=== PATIENT | female | born 1980 | race Two or more races ===

== ENCOUNTER 2022-03-15 11:04 | Outpatient (REF) | payer OTHER, SELFPAY ==
[2022-03-15 12:11] LABS: MANUAL DIFF FLAG NO
[2022-03-15 13:11] LABS: Basophils Percent Auto 0.5 % (0-2); Eosinophils Absolute Auto 0.2 X10*3/uL (0.0-0.4); Eosinophils Percent Auto 1.9 % (0-4); Hematocrit 42.8 % (37.0-47.0); Hemoglobin 13.7 g/dl (12.0-16.0); Imm Gran Abs Auto 0.02 X10*3/uL (0.00-0.03); Imm Gran Pct Auto 0.2 % (0.0-0.4); Lymphocytes Absolute Auto 2.4 X10*3/uL (1.2-4.9); Lymphocytes Percent Auto 27.7 % (20-40); Mean Corpuscular Volume 81.2 fL (80.0-98.0); Mean Platelet Volume 10.5 fL (9.4-12.3); Monocytes Absolute Auto 0.6 X10*3/uL (0.1-1.2); Monocytes Percent Auto 6.4 % (2-11); Neutrophils Absolute Auto 5.5 x10*3/uL (2.0-8.3); Neutrophils Percent Auto 63.3 % (45-73); Platelet Count 312 X10*3/uL (160-400); Red Blood Count 5.27 X10*6/uL (4.20-5.50); Red Cell Distribution Width 14.9 % (11.0-16.0); White Blood Count 8.6 X10*3/uL (4.8-10.8)
[2022-03-15 13:25] LABS: Estimated Average Glucose 108 mg/dL; Hemoglobin A1c % 5.4 %
[2022-03-15 13:43] LABS: Alanine Aminotransferase 10 U/L (0-31); Albumin Level 4.5 g/dL (3.5-5.0); Alkaline Phosphatase 84 U/L (39-117); Anion Gap 13 (12-20); Aspartate Amino Transferase 10 U/L (5-31); Bilirubin Total 0.5 mg/dL (0.0-1.0); Blood Urea Nitrogen 10 mg/dL (9-16); C Reactive Protein 0.36 mg/dL (< or = 0.50); Calcium 9.5 mg/dL (8.4-10.2); Carbon Dioxide 25 mmol/L (22-29); Chloride 105 mmol/L (96-108); Cholesterol 207 mg/dL; Estimated Glomerular Filt Rate > 60; Glucose Random 84 mg/dL (60-115); HDL Cholesterol 61 mg/dL; Iron 57 mcg/dL (30-160); LDL Cholesterol Calculated 128 mg/dl; Percent Iron Saturation 16 % (15-50); Potassium 4.2 mmol/L (3.3-5.1); Sodium 139 mmol/L (135-145); Total Iron Binding Capacity 365 mcg/dL (228-428); Total Protein 7.3 g/dL (6.5-8.0); Triglycerides 92 mg/dL; Unsaturated Iron Binding 308 ug/dL
[2022-03-15 13:58] LABS: Ferritin 25 ng/mL (10-250); Insulin 9 uU/mL (2-29); TSH reflex Free T4 0.39 uIU/mL (0.32-4.0); Vitamin D 25-OH Total 23.5 ng/mL (>30)
[2022-03-15 14:14] LABS: Folate 13.6 ng/mL (> or = 4.0); Vitamin B12 491 pg/mL (200-900)
[2022-03-16 15:10] LABS: H Pylori Breath Test Negative (Negative)
[2022-03-18 00:37] LABS: Calcium (PTHI) 9.7 mg/dL (8.6-10.2); PTHI 106 pg/mL (16-77)
[2022-03-19 09:07] LABS: Vitamin B1 11 nmol/L (8-30)
[2022-03-20 06:11] LABS: Zinc 86 mcg/dL (60-130)
[2022-03-21 17:33] LABS: Vitamin A 41 mcg/dL (38-98)
== END 2022-03-15 11:05 | disposition home or self-care (01) ==
LOC: HO.LAB 11:04
PROVIDERS: Absent Provider Surgery; PCP Physician Assistant; Visit Provider Physician Assistant Surgical
DX: E66.9 Obesity, unspecified (principal); Z68.35 Body mass index [BMI] 35.0-35.9, adult; J44.9 Chronic obstructive pulmonary disease, unspecified; G47.30 Sleep apnea, unspecified
CPT/HCPCS: 36415; 80053; 80061; 82306; 82607; 82728; 82746; 83013; 83036; 83525; 83540; 83970; 84425; 84443; 84590; 84630; 85025; 86140; 99211

== ENCOUNTER 2022-06-13 12:46 | Outpatient (REF) | payer OTHER, SELFPAY ==
--- NOTE | ~2022-06-13 | XR_ITS ---
EXAMINATION: CHEST AND RIGHT ELBOW CLINICAL INFORMATION: Deep venous thrombosis in the right approximately COMPARISON: None TECHNIQUE: 3 views right elbow and 2 views chest FINDINGS: RIGHT ELBOW: There is no visible acute fracture, dislocation or subluxation. No bony erosive changes. The soft tissues are normal. CHEST: Both lungs are fairly well-expanded and clear. The heart size and pulmonary vascularity is normal. No gross bony abnormality. XR/XR chest 2V IMPRESSION: Unremarkable chest exam. Unremarkable right elbow exam
--- NOTE | ~2022-06-13 | XR_ITS ---
EXAMINATION: CHEST AND RIGHT ELBOW CLINICAL INFORMATION: Deep venous thrombosis in the right approximately COMPARISON: None TECHNIQUE: 3 views right elbow and 2 views chest FINDINGS: RIGHT ELBOW: There is no visible acute fracture, dislocation or subluxation. No bony erosive changes. The soft tissues are normal. CHEST: Both lungs are fairly well-expanded and clear. The heart size and pulmonary vascularity is normal. No gross bony abnormality. XR/XR elbow RT min 3V IMPRESSION: Unremarkable chest exam. Unremarkable right elbow exam
--- NOTE | 2022-06-13 12:53 | ECG_ITS ---
Test Reason : copd Blood Pressure : / mmHG Vent. Rate : 068 BPM Atrial Rate : 068 BPM P-R Int : 144 ms QRS Dur : 092 ms QT Int : 390 ms P-R-T Axes : 060 062 062 degrees QTc Int : 414 ms Normal sinus rhythm Normal ECG When compared with ECG of 08-MAR-2020 20:09, No significant change was found Referred By: Osvaldo Rivera Electronically Signed By:TERRIE YEPEZ
== END 2022-06-13 12:47 | disposition home or self-care (01) ==
LOC: HO.XRAY 12:46
PROVIDERS: Absent Provider Physician Assistant; PCP Physician Assistant; Visit Provider Surgery
DX: I82.621 Acute embolism and thrombosis of deep veins of right upper extremity (principal); E66.9 Obesity, unspecified; Z68.35 Body mass index [BMI] 35.0-35.9, adult; J44.9 Chronic obstructive pulmonary disease, unspecified; G47.30 Sleep apnea, unspecified
CPT/HCPCS: 71046; 73080; 93005

== ENCOUNTER → 2022-08-13 08:42 | Outpatient (BNVA) | payer OTHER, SELFPAY | PROVIDERS: PCP Physician Assistant; Visit Provider Surgery | DX: Z13.89 Encounter for screening for other disorder (principal) ==

== ENCOUNTER → 2022-08-30 13:00 | Outpatient (BNVA) | payer OTHER, SELFPAY | PROVIDERS: PCP Physician Assistant; Visit Provider Counselor Mental Health ==

== ENCOUNTER → 2022-09-04 10:51 | Outpatient (BNVA) | payer OTHER, SELFPAY | PROVIDERS: PCP Physician Assistant; Visit Provider Dietitian, Registered | DX: E66.9 Obesity, unspecified (principal) | CPT/HCPCS: 97802 ==

== ENCOUNTER → 2022-09-10 08:07 | Outpatient (BNVA) | payer OTHER, SELFPAY | PROVIDERS: PCP Physician Assistant; Visit Provider Surgery ==

== ENCOUNTER → 2022-09-20 09:30 | Outpatient (BNVA) | payer OTHER, MEDICAID, SELFPAY | PROVIDERS: PCP Physician Assistant; Visit Provider Counselor Mental Health ==

== ENCOUNTER 2022-12-27 13:03 | Outpatient (AMB) | payer MEDICAID, SELFPAY ==
--- NOTE | 2022-12-27 13:13 | MHC.OFFVISWM ---
Intake VS Expanded 12/27/22 13:17 Height 5 ft 3 in Weight 194 lb 9.6 oz BMI 34.5 BP 131/69 Blood Pressure Location Rt brachial Blood Pressure Position Sitting Pulse 89 Pulse Source Pulse Oximeter Temp 97.7 F Temperature Source Temporal Artery Scan Pulse Oximetry 97 Oxygen Delivery Method Room Air Body Fat 68.8 Body Fat Percentage 35.4 Free Fat Mass 125.6 Muscle Mass 119.2 Visceral Mass 8.0 Water Mass 89.8 BMR 1,714 Intake Visit Reasons: (OV) F/U SWL Credit Card Analyst Required: No Allergies Penicillins [PENICILLINS] Allergy (Unknown, Verified 12/27/22 13:17) FACIAL SWELLING penicillin Allergy (Unknown, Uncoded 02/26/22 08:12) Swelling Medication List - Last Reconciled 12/27/22 by JOSELUIS Camilo albuterol sulfate 90 mcg/actuation (ProAir HFA) 2 puffs inhalation Q6H PRN beclomethasone dipropionate 80 mcg/actuation (Qvar RediHaler) 1 inh inhalation BID cetirizine (Zyrtec) 10 mg PO DAILY PRN cholecalciferol (vitamin D3) 125 mcg PO DAILY fluvoxamine 100 mg PO BID lamotrigine 200 mg PO DAILY naltrexone microspheres ER (Vivitrol) 380 mg IM Q4W pregabalin 75 mg PO BID HPI HPI Comments History of Present Illness Details The patient is a pleasant 42 year old female who returns to the clinic for pre-operative surgical weight loss management. She started the program in February 2022. Today's weight is 194.6 pounds and BMI is 34.5. There has been a weight loss of 3.4 pounds since initiating the surgical weight loss program on 02/26/22 with a total body weight loss of 1.7 %. Pre op work up completed as follows: SWL classes:? 07/18 BH appts: needs f/u ? ? RD appts: needs f/u Labs: 03/15/22-low D H. pylori: 03/15/22-neg CXR: 06/13/22-nad EK06/13/22-nsr ABD U/S: needs UGI: needs The patient reports she is still smoking, down to 3 cigs per day, down from 1 ppd, wearing nicotine patch 21 mg. She is living at a transitional program in [place] (recovery program for alcohol abuse), returning to her home in [place] in 2 weeks. Previously, years ago, drinking 1.5 L per day but then changed to crack cocaine, stopped 3 years ago. Clean until September and then picked up alcohol. 2-3 pints ary daily until 12/01/22 when she quit and went into a detox program at that time. Went into the CSS/detox over 2 weeks and then into a TSS program about 8 days ago. She intends to start the IOP at [facility] upon return to the community in about 2 weeks. She states that the TSS inpt program can accommodate her Orgain shakes and ZP bars. Wakes 530am bed at 930 pm, dinner at 430 pm Current meal plan includes: oatmeal for breakfast, with eggs and coffee pork, veg, salad another meal Drinking 36-80 oz of water Current exercise plan includes: using tv in am [facility] [place] the pounds. [facility] Medical History Agoraphobia Anxiety Back pain Bipolar 1 disorder COPD (chronic obstructive pulmonary disease) Depression History of alcohol abuse Insomnia Social History Alcohol intake: never Patient Tobacco Use Status: Current everyday Tobacco user Cigarettes Per Day: 3 Years Smoked: 20 Physical Exam Vital Signs: Last Vital Signs Temp 97.7 F 12/27/22 13:17 Pulse 89 12/27/22 13:17 BP 131/69 12/27/22 13:17 Pulse Ox 97 12/27/22 13:17 Oxygen Delivery Method Room Air 12/27/22 13:17 BMI result Body Mass Index 34.5 Const General: healthy appearing and no acute distress Resp Effort & Inspection: normal respiratory effort Auscultation: clear to auscultation bilaterally Cardio Rate: regular rate Rhythm: regular rhythm GI Auscultation: normal bowel sounds Extrem General: Yes normal to inspection Assessment & Plan Assessment & Plan (1) Obesity: Code(s): E66.9 - Obesity, unspecified Plan: 630-830 am shake Orgain 1 scoop in 8 oz unsweetened almond milk [id number] 1-3 pm-ZP bar 430 pm meal 8 forks protein/8 forks veg 630-830 pm-kathleenke RD/BH appts rtc 1 month Coding Level of Care Code Est Pt Level 3 (73288) Diagnoses Obesity E66.9
[2022-12-27 13:17] VITALS: BP 131/69; PULSE 89; TEMP 36.5; O2SAT 97; BMI 34.5
== END 2022-12-27 13:56 | disposition home or self-care (01) ==
PROVIDERS: PCP Physician Assistant; Visit Provider Physician Assistant Surgical
DX: E66.9 Obesity, unspecified (principal)
CPT/HCPCS: 99213

== ENCOUNTER → 2022-12-27 13:03 | Outpatient (BNVA) | payer MEDICAID, SELFPAY | PROVIDERS: PCP Physician Assistant; Visit Provider Physician Assistant Surgical | DX: E66.9 Obesity, unspecified (principal); Z68.34 Body mass index [BMI] 34.0-34.9, adult | CPT/HCPCS: 99212; 99213 ==

== ENCOUNTER → 2023-01-01 11:12 | Outpatient (BNVA) | payer MEDICAID, SELFPAY | PROVIDERS: PCP Physician Assistant; Visit Provider Dietitian, Registered | DX: F10.20 Alcohol dependence, uncomplicated (principal); F17.210 Nicotine dependence, cigarettes, uncomplicated | CPT/HCPCS: 97803 ==

== ENCOUNTER 2023-01-03 11:36 | Outpatient (AMB) | payer MEDICAID, SELFPAY ==
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
== END 2023-01-03 11:53 | disposition home or self-care (01) ==
LOC: HO.HBST 11:36
PROVIDERS: PCP Physician Assistant; Visit Provider Counselor Mental Health
DX: F31.9 Bipolar disorder, unspecified (principal); F10.11 Alcohol abuse, in remission; F50.81 Binge eating disorder
CPT/HCPCS: 90834

== ENCOUNTER → 2023-01-03 11:36 | Outpatient (BNVA) | payer OTHER, MEDICAID, SELFPAY | PROVIDERS: PCP Physician Assistant; Visit Provider Counselor Mental Health ==

== ENCOUNTER 2023-01-29 09:31 | Outpatient (AMB) | payer MEDICAID, SELFPAY ==
--- NOTE | 2023-01-29 09:35 | A.OFFVIS_ITS ---
Intake VS Expanded 01/29/23 09:39 Height 5 ft 3 in Weight 201 lb 3.2 oz BMI 35.6 BP 110/54 L Blood Pressure Location Rt brachial Blood Pressure Position Sitting Pulse 76 Pulse Source Pulse Oximeter Temp 98.3 F Temperature Source Temporal Artery Scan Pulse Oximetry 97 Oxygen Delivery Method Room Air Body Fat 76.2 Body Fat Percentage 37.9 Free Fat Mass 124.8 Muscle Mass 118.4 Visceral Mass 9.0 Water Mass 89.0 BMR 1,714 Intake Visit Reasons: (OV) F/U SWL Fermenting Cellars Supervisor Required: No Allergies Penicillins [PENICILLINS] Allergy (Unknown, Verified 01/29/23 09:37) FACIAL SWELLING penicillin Allergy (Unknown, Uncoded 02/26/22 08:12) Swelling Medication List - Last Reconciled 01/29/23 by JOSELUIS Camilo albuterol sulfate 90 mcg/actuation (ProAir HFA) 2 puffs inhalation Q6H PRN beclomethasone dipropionate 80 mcg/actuation (Qvar RediHaler) 1 inh inhalation BID cetirizine (Zyrtec) 10 mg PO DAILY PRN cholecalciferol (vitamin D3) 125 mcg PO DAILY fluvoxamine 100 mg PO BID lamotrigine 200 mg PO DAILY naltrexone microspheres ER (Vivitrol) 380 mg IM Q4W pregabalin 75 mg PO BID HPI HPI Comments History of Present Illness Details The patient is a pleasant 43 year old female who returns to the clinic for pre-operative surgical weight loss management. They were last seen in the office on 12/27/22, recorded weight at that time was 194.6 pounds, with a BMI of 34.5. Today's weight is 201.2 pounds and BMI is 35.6. There has been a weight gain of 3.2 pounds since initiating the surgical weight loss program on 02/26/22. The patient reports she is in a full program for ETOH addiction. She had med changes and she was in bed for 2 weeks. She just started exercising again. Continues 3 cigs per day. Current meal plan includes: 630-830 am shake Orgain 1 scoop in 8 oz unsweetened almond milk [id number] 1-3 pm-ZP bar 430 pm meal 8 forks protein/8 forks veg 630-830 pm-shake Drinking 120 oz of water Current exercise plan includes: mallorie tran walk away the pounds, 1 - 2 miles daily. PFSH Medical History Agoraphobia Anxiety Back pain Bipolar 1 disorder COPD (chronic obstructive pulmonary disease) Depression History of alcohol abuse Insomnia Social History Alcohol intake: never Patient Tobacco Use Status: Current everyday Tobacco user Cigarettes Per Day: 3 Years Smoked: 20 Review of Systems Const All systems reviewed & are unremarkable except as noted in HPI and below Physical Exam Vital Signs: Last Vital Signs Temp 98.3 F 01/29/23 09:39 Pulse 76 01/29/23 09:39 BP 110/54 L 01/29/23 09:39 Pulse Ox 97 01/29/23 09:39 Oxygen Delivery Method Room Air 01/29/23 09:39 BMI result Body Mass Index 35.6 Const General: healthy appearing and no acute distress Resp Effort & Inspection: normal respiratory effort Auscultation: clear to auscultation bilaterally Cardio Rate: regular rate Rhythm: regular rhythm GI Auscultation: normal bowel sounds Extrem General: Yes normal to inspection Assessment & Plan Assessment & Plan (1) Obesity: Code(s): E66.9 - Obesity, unspecified Plan: Given pts ongoing IOP for ETOH abuse and just recent sobriety (2 months) will w/d from the program and return after a year of sobriety. Coding Level of Care Code Est Pt Level 3 (57999) Diagnoses Obesity E66.9
[2023-01-29 09:39] VITALS: BP 110/54; PULSE 76; TEMP 36.8; O2SAT 97; BMI 35.6
== END 2023-01-29 10:08 | disposition home or self-care (01) ==
PROVIDERS: PCP Physician Assistant; Visit Provider Physician Assistant Surgical
DX: E66.9 Obesity, unspecified (principal)
CPT/HCPCS: 99213

== ENCOUNTER → 2023-01-29 09:31 | Outpatient (BNVA) | payer MEDICAID, SELFPAY | PROVIDERS: PCP Physician Assistant; Visit Provider Physician Assistant Surgical | DX: E66.9 Obesity, unspecified (principal); Z68.35 Body mass index [BMI] 35.0-35.9, adult | CPT/HCPCS: 99212; 99213 ==

== ENCOUNTER 2023-06-21 10:36 | Outpatient (REF) | payer MEDICAID, SELFPAY ==
--- NOTE | ~2023-06-21 | XR_ITS ---
EXAMINATION: XR SHOULDER, RIGHT CLINICAL INFORMATION: Pain COMPARISON: None available. TECHNIQUE: AP external rotation, Grashey, scapular Y, and axillary views of the right shoulder. FINDINGS: The bones and soft tissues are normal. No fracture. Glenohumeral and acromioclavicular alignment is anatomic with normal joint space. No abnormal soft tissue calcifications. XR/XR shoulder RT min 2V IMPRESSION: Unremarkable right shoulder.
== END 2023-06-21 10:37 | disposition home or self-care (01) ==
LOC: HO.XRAY 10:36
PROVIDERS: PCP Physician Assistant; Visit Provider Physician Assistant
DX: M25.511 Pain in right shoulder (principal)
CPT/HCPCS: 73030

== ENCOUNTER 2023-06-24 11:05 | Outpatient (REF) | payer MEDICAID, SELFPAY ==
[2023-06-24 11:26] LABS: MANUAL DIFF FLAG NO
[2023-06-24 12:04] LABS: Basophils Absolute Auto 0.1 X10*3/uL (0.0-0.2); Basophils Percent Auto 0.7 % (0-2); Eosinophils Absolute Auto 0.1 X10*3/uL (0.0-0.4); Eosinophils Percent Auto 1.4 % (0-4); Hematocrit 41.2 % (37.0-47.0); Hemoglobin 13.2 g/dl (12.0-16.0); Imm Gran Abs Auto 0.03 X10*3/uL (0.00-0.03); Imm Gran Pct Auto 0.4 % (0.0-0.4); Lymphocytes Absolute Auto 1.9 X10*3/uL (1.2-4.9); Lymphocytes Percent Auto 26.4 % (20-40); Mean Corpuscular Hemoglobin 25.6 pg (27.0-33.0); Mean Platelet Volume 9.7 fL (9.4-12.3); Monocytes Absolute Auto 0.4 X10*3/uL (0.1-1.2); Monocytes Percent Auto 4.9 % (2-11); Neutrophils Absolute Auto 4.9 x10*3/uL (2.0-8.3); Neutrophils Percent Auto 66.2 % (45-73); Platelet Count 309 X10*3/uL (160-400); Red Blood Count 5.15 X10*6/uL (4.20-5.50); Red Cell Distribution Width 17.5 % (11.0-16.0); White Blood Count 7.3 X10*3/uL (4.8-10.8)
[2023-06-24 12:11] LABS: Alanine Aminotransferase 18 U/L (0-31); Albumin Level 4.5 g/dL (3.5-5.0); Alkaline Phosphatase 94 U/L (39-117); Anion Gap 11 (12-20); Aspartate Amino Transferase 12 U/L (5-31); Bilirubin Total 0.3 mg/dL (0.0-1.0); Blood Urea Nitrogen 11 mg/dL (9-16); Calcium 9.5 mg/dL (8.4-10.2); Carbon Dioxide 22 mmol/L (22-29); Chloride 109 mmol/L (96-108); Estimated Glomerular Filt Rate > 60; Glucose Random 87 mg/dL (60-115); Potassium 4.4 mmol/L (3.3-5.1); Sodium 138 mmol/L (135-145); Total Protein 7.8 g/dL (6.5-8.0)
[2023-06-24 12:19] LABS: HBS Num1 2.83 mIU/mL (0-7.99); HBc Num1 0.09 S/CO (0.00-0.79); HBsAGNum1 0.25 S/CO (0.00-0.99); HIV AB/AG Nonreactive (Nonreactive); HIV Num 1 0.04 S/CO (0.00-0.99); Hepatitis B Core Antibody Nonreactive (Nonreactive); Hepatitis B Surface Antigen Negative (Negative); Syphilis Screen Nonreactive (Nonreactive); ~HepC Num1 0.13 S/CO (0.00-0.79); ~Hepatitis B Surface Antibody NONREACTIVE (Nonreactive); ~Hepatitis C Antibody Nonreactive (Nonreactive)
[2023-06-24 12:20] LABS: Free T4 (Free Thyroxine) 0.87 ng/dL (0.71-1.85); Thyroid Stimulating Hormone 0.52 uIU/mL (0.32-4.0)
[2023-06-24 12:26] LABS: Vitamin B12 443 pg/mL (200-900)
[2023-06-24 13:28] LABS: UPreg QC Valid YES; Urine Pregnancy NEGATIVE (NEGATIVE)
== END 2023-06-24 11:06 | disposition home or self-care (01) ==
LOC: HO.LAB 11:05
PROVIDERS: Visit Provider Psychiatry & Neurology Psychiatry
DX: Z11.4 Encounter for screening for human immunodeficiency virus [HIV] (principal); F31.81 Bipolar II disorder
CPT/HCPCS: 36415; 80053; 81025; 82607; 84439; 84443; 85025; 86704; 86706; 86780; 86803; 87340; 87389

== ENCOUNTER → 2023-06-26 09:45 | Outpatient (BNV) | payer OTHER, SELFPAY | PROVIDERS: Visit Provider Psychiatry & Neurology Psychiatry | DX: F31.81 Bipolar II disorder (principal); F41.8 Other specified anxiety disorders; F42.9 Obsessive-compulsive disorder, unspecified; F63.89 Other impulse disorders; F43.12 Post-traumatic stress disorder, chronic; F14.21 Cocaine dependence, in remission; F10.21 Alcohol dependence, in remission | CPT/HCPCS: 99213; 99214 ==

== ENCOUNTER 2023-06-28 09:45 | Outpatient (RCR) | payer OTHER, SELFPAY ==
[2023-06-13 11:47] VITALS: BP 114/64; PULSE 64; TEMP 36.4
[2023-06-13 11:51] VITALS: BMI 31.9
--- NOTE | 2023-06-13 13:57 | PC.ADMIT ---
Patient is a 43 year old female who self referred to PHP d/t mood instability, anxiety, PTSD sxs and recent relapse on ETOh and Cocaine. Patient reports she has been sober for 3 weeks and 2 days. She is on MAT with Vivitrol monthly injections and Topomax daily. Patient has a DX of Bipolar II disorder. Patient is alert and oriented x4. Calm and cooperative. Increased anxiety with visible restlessness while sitting in a chair while meeting with me in my office. Reports her biggest struggle is anxiety. She also reports difficulty leaving her home. Denied SI. Medications reconciled with patient and patient's pharmacy. She reports she recently switched [facility] on [facility] [address] in [place].
--- NOTE | 2023-06-13 14:30 | HO.PHP ---
Client's case has been opened and reviewed in treatment team.
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
--- NOTE | 2023-06-14 09:41 | PC.NURSE ---
Liz has an appointment today with . She will be at the program on Saturday.
--- NOTE | 2023-06-17 09:32 | PC.NURSE ---
Liz did not show up to the program this morning. I called Liz and left her a message to call me back.
--- NOTE | 2023-06-17 09:48 | PC.NURSE ---
I called Liz for the second time. I spoke to her and she stated she forgot to call us and let us know she has orientation today with [employer] for unemployment. She stated she will be at [facility] program for the rest of the week.
--- NOTE | 2023-06-19 10:12 | PC.NURSE ---
Patient c/o R shoulder pain. She reported upon admission to [facility] that her doctor has ordered an x-ray to be done and that she was planning on completing this after program that day. Patient continues to c/o shoulder pain. She has not completed the x-ray, unclear why. She stated she has been on the phone with her doctor's office and is having them transfer the x-ray orders to [facility] so she can complete the x-ray here. Does not want to go to the emergency room to f/u.
[2023-06-21 14:44] LABS: Amphetamine Screen Urine Not Detected (Not Detect); Barbiturates, Urine Not Detected (Not Detect); Benzodiazepines Screen Urine Not Detected (Not Detect); Cannabinoid Screen Urine Not Detected (Not Detect); Cocaine Screen Urine Not Detected (Not Detect); Fentanyl, urine Not Detected (Not Detect); Opiate Screen Urine Not Detected (Not Detect); Phencyclidine Screen Urine Not Detected (Not Detect)
--- NOTE | 2023-06-21 23:42 | HO.PHPPROGNO ---
Subjective Subjective Date of Service: 06/21/23 Reason For Visit: bipolar,PTSD Interim History: Patient seen for follow-up today. No acute issues or concerns. Still reporting mood up and down, describes high reactivity, irritability more than depression. Anxiety remains biggest issue . Presents with bright somewhat anxious affect, smiling, engaging, remains very restless and fidgety throughout encounter, has difficulty sitting still and says this is a constant issue for her on account of reported ADHD. Hyperactivity but otherwise negative for osvaldo. Reports constant fidgeting and has been told by peers in groups that she is being distracting. Would like to be treated for ADHD and is agreeable to trial of guanfacine which would also help with anxiety. Sleep has been intact but some difficulties settling for sleep. This has improved with Ambien and topiramate. She is still experiencing some cravings later in the afternoon and is agreeable to taking 25 mg topiramate in AM and continuing 25 mg HS. Lamictal is at 100 mg (since increasing from 50 mg last week - she denies any rash, and says she has restarted herself on Lamictal before without problems, but agrees to comply with titration schedule and will remain at 100 mg for another week) . In the meantime we discuss starting Abilify to target mood instability. She has had brief trial of Seroquel for sleep but was too sedating and is worried about weight gain. May have been on Abilify in the past many years ago, does not recall treatment history, but is willing to give it a try. She denies any suicidal ideation or thoughts of harming self or others. Will plan to order routine labs including metabolic lab work as well as HIV, hepatitis status. Medication Compliance: Yes Side effects from medications: No Attending Groups: Yes Review of Systems Acute medical concerns: No Mental Status Exam Mental Status Exam Narrative: Alert, oriented, in no acute distress. Groomed. +psychomotor agitation, restlessness, fidgety, rocking in chair otherwise cooperative, forthcoming. Eye contact good. Mood labile, affect variable, elevated. Normal speech without pressure or latency. Thought process linear, coherent, a bit scattered without FOI or CHARY. Thought content relevant to stressors, poor impulse control, attentional dysregulation. Denies hopelessness or SI or HI, intention, urge or plan. Denies AH or VH. No evidence of perceptual disturbance. Cognition grossly intact but distractible. Sensorium clear. Insight and judgment limited/fair. Diagnostics Vital Signs (24Hr): BMI result Body Mass Index 31.9 Labs Labs: Laboratory Results - last 48 hr 06/21/23 14:00 Urine Opiates Screen Not Detected Urine Fentanyl Screen Not Detected Ur Barbiturates Screen Not Detected Ur Phencyclidine Scrn Not Detected Ur Amphetamines Screen Not Detected U Benzodiazepines Scrn Not Detected Urine Cocaine Screen Not Detected U Marijuana (THC) Screen Not Detected Assessment & Plan Assessment & Plan (1) Bipolar II disorder with rapid cycling: Status: Acute Code(s): F31.81 - Bipolar II disorder (2) Other specified anxiety disorders: Status: Acute Code(s): F41.8 - Other specified anxiety disorders (3) Cocaine use disorder, severe, in early remission, dependence: Status: Acute Code(s): F14.21 - Cocaine dependence, in remission (4) Alcohol use disorder, severe, in early remission, dependence: Status: Acute Code(s): F10.21 - Alcohol dependence, in remission (5) Other impulse disorders: Status: Acute Code(s): F63.89 - Other impulse disorders (6) Obsessive compulsive disorder (or obsessive compulsive neurosis): Status: Acute Code(s): F42.9 - Obsessive-compulsive disorder, unspecified Assessment and Plan: stable on Luvox (7) Chronic post-traumatic stress disorder (PTSD): Status: Acute Code(s): F43.12 - Post-traumatic stress disorder, chronic Plan start Abilify 2.5 mg qd start guanfacine Er 1 mg qd continue retitration of Lamictal, currently at 100 mg qd (previous dose was 200 mg) continue Luvox 50 mg BID continue Lyrica 150 mg BID increase topiramate 25 mg from qd to BID continue zolpidem 5 mg qhs PRN sleep on Vivitrol monthly injection UDS again today given slip for lab work continue to monitor Patient educated on: diagnosis, medication risk/benefits and substance abuse Informed Consent: understands Reason for contiued partial hosp. stay Substantial Risk for: inability to function, rapid decompensation and med/psych decompensation Certification I certify that partial hospital treatment is medically necessary due to the symptoms and problems resulting from the patient's mental illness and the failure to treat the patient at the partial hospital level of care would likely result in the patient requiring inpatient psychiatric care which could not be prevented at a less intensive level of care. Total time managing care of this patient today __30__ minutes. Discharge Plan Discharge Attending provider: Aydee Adams Medications: New topiramate 25 mg tablet 25 mg PO DAILY 14 Days Qty: 14 0RF topiramate 50 mg tablet 50 mg PO .QHS 14 Days Qty: 14 0RF guanfacine 2 mg tablet extended release 24 hr 2 mg PO QAM 14 Days Qty: 14 0RF guanfacine 1 mg tablet extended release 24 hr 1 mg PO DAILY 14 Days Qty: 14 0RF Rx Instructions: in afternoon metformin 500 mg tablet 500 mg PO .QHS 14 Days Qty: 14 0RF aripiprazole [Abilify] 5 mg tablet 5 mg PO BEDTIME 14 Days Qty: 14 0RF fluvoxamine 50 mg tablet 50 mg PO BID 14 Days Qty: 28 0RF lamotrigine 150 mg tablet 150 mg PO DAILY 14 Days Qty: 14 0RF nicotine 14 mg/24 hr patch 24 hour 1 patch transdermal DAILY 14 Days Qty: 14 0RF Rx Instructions: remove patch daily at night; use 14 mg patch Rx after completing 2 weeks of 21 mg patch Rx nicotine 7 mg/24 hr patch 24 hour 1 patch transdermal Q24H 14 Days Qty: 14 0RF Rx Instructions: remove daily at night; use 7 mg patch Rx after completing 2 weeks of 14 mg patch Rx Continued pregabalin 150 mg capsule 150 mg PO BID zolpidem 5 mg tablet 5 mg PO BEDTIME PRN (Reason: sleep) 14 Days Qty: 14 0RF nicotine 21 mg/24 hr Patch 24 Hour 1 patch TRANSDERMAL DAILY 14 Days Qty: 14 0RF Rx Instructions: remove patch daily at night nicotine (polacrilex) 4 mg Gum 4 mg BUCCAL Q2H Qty: 50 0RF Rx Instructions: Cinnamon option Vivitrol 380 mg suspension,extended rel recon 380 mg IM Q4W Patient Comments: Last took 2 weeks ago. albuterol sulfate [ProAir HFA] 90 mcg/actuation HFA aerosol inhaler 2 puff inhalation Q6H PRN (Reason: sob) Discontinued topiramate [Topamax] 25 mg Tablet 25 mg PO DAILY lamotrigine 200 mg tablet 100 mg PO DAILY Patient Comments: Patient was taking 200 mg daily. Currently is taking 100 mg daily. Rx Instructions: Takes 1/2 tab daily. fluvoxamine 100 mg tablet 50 mg PO BID Patient Comments: Patient stated she restarted. Prescription was for 100 mg tab take 1.5 tabs BID. She is taking 50 mg BID currently. No Action tramadol 50 mg Tablet 50 mg PO QID PRN (Reason: Pain) Stand Alone Forms: Patient Portal Discharge page Patient Education: Bipolar Disorder (DC), Post Traumatic Stress Disorder (DC)
--- NOTE | 2023-06-24 14:26 | HO.PHP ---
Monogram Operator met with pt at 9 am after [facility] to use the phone. Pt and automatic typewriter inspector discussed how her increased phone use was interfering with groups and her ability to participate last week. Pt agreed she had a lot of distractions and would try to use the phone between groups only. At 2:00 we met again to discuss an extension.
--- NOTE | 2023-06-25 13:10 | HO.PHP ---
[facility] staff member completed after care planning with Liz, in which we contacted [facility]. Liz has her next scheduled appointment on July 01, 2023 at 11 AM. Liz will begin program on July 02, 2023 at 9 to 12:30 PM. Location is in [place] [address].
[2023-06-27 09:29] VITALS: BP 104/62; PULSE 72
--- NOTE | 2023-06-27 18:23 | HO.PHPPROGNO ---
Subjective Subjective Date of Service: 06/27/23 Reason For Visit: bipolar,PTSD Interim History: Doing good, feel good In the interim, reports no outbursts, reports over stability at a 6 out of 10, improved from a 2 out of 10 on admission. She reports her mood is stable, not really having any problems with irritability or depression. What remains that needs improvement is mostly ADHD-related issues and anxiety symptoms. I have a lot of anxiety left but now I can cope with it and I'm functioning. She finds the guanfacine helps her feel calmer and less fidgety, and notes that being calmer she also has been better able to pay attention and focus on tasks or on conversations in groups.She says she has been able to follow other people's discussions without being as distracted. She also reports that she has been doing more writing in her free time and has been starting and completing tasks around her house. She would like to increase dose of guanfacine to see if it can help further with attention/focus/hyperactivity. She denies any adverse effects. Sleep has improved with additional of Abilify, she is generally out of bed by 5 am, takes first dose before 7am, feels effects wear-off by afternoon and feels more anxious and scattered by then. We discuss moving her PM dose of guanfacine to the afternoon which she is agreeable to. She has been taking topiramate 25 mg BID, she is noticing a little brain fog after the AM dose, which lasts an hour or 2, and I suggest she could take all 50 mg at night. She says she doesn't mind continuing the AM dose now that she knows what is causing this, and in fact feels like this has been improving with time, but she asks if she could still move to 50 mg at night. She denies having any cravings but says the topic of substance use has been popping up in her mind and says she just wants to make sure she doesn't start having cravings. She is agreeable to dropping the dose back to 25 mg QHS if it feels like too much. She denies any SI. No HI, AH, VH. But says she has some ED thoughts around restricting, she has not been engaging in this but that it is stemming from worries that the Abilify will put weight on her. She says she had been previously pre-diabetic and that she had been encouraged to make lifestyle changes which she has worked hard on. Nonetheless she puts weight on easily and says she is still very overweight. She was agreeable with plan to start metformin 250 mg bid, and says she would be much more comfortable with the Abilify and much less anxious about potential weight gain if this was in place. We reviewed patient's recent lab work from 06/24, no major findings on CBC, renal and liver function, metabolic labs, HbA1c, TFTs. Pregancy, HIV, hepatitis panels negative. Medication Compliance: Yes Side effects from medications: Yes (as noted re: AM topiramate) Attending Groups: Yes Review of Systems Acute medical concerns: No Mental Status Exam Mental Status Exam Narrative: Alert, oriented, in no acute distress. Groomed. +psychomotor agitation, restlessness, fidgety, rocking in chair (fell off chair at one point ?possibly overdramatized or attention-seeking) otherwise cooperative, forthcoming. Eye contact good. Mood labile, affect variable, elevated. Normal speech without pressure or latency. Thought process linear, coherent, a bit scattered without FOI or CHARY. Thought content relevant to stressors, poor impulse control, attentional dysregulation, some drug seeking around ADHD meds and benzos. Denies hopelessness or SI or HI, intention, urge or plan. Denies AH or VH. No evidence of perceptual disturbance. Cognition grossly intact but distractible. Sensorium clear. Insight and judgment limited/fair. Diagnostics Vital Signs (24Hr): Vital Signs - 24 hr 06/27/23 09:29 Pulse Rate 72 Blood Pressure 104/62 BMI result Body Mass Index 31.9 Assessment & Plan Assessment & Plan (1) Bipolar II disorder with rapid cycling: Status: Acute Code(s): F31.81 - Bipolar II disorder (2) Other impulse disorders: Status: Acute Code(s): F63.89 - Other impulse disorders (3) Chronic post-traumatic stress disorder (PTSD): Status: Acute Code(s): F43.12 - Post-traumatic stress disorder, chronic (4) Other specified anxiety disorders: Status: Acute Code(s): F41.8 - Other specified anxiety disorders (5) Cocaine use disorder, severe, in early remission, dependence: Status: Acute Code(s): F14.21 - Cocaine dependence, in remission (6) Alcohol use disorder, severe, in early remission, dependence: Status: Acute Code(s): F10.21 - Alcohol dependence, in remission Plan increase guanfacine ER to 2 mg qAM continue guanfacine ER 1 mg PM (move earlier to afternoon) continue topiramate 25 mg qAM increase topiramate to 50 mg qHS continue Abilify 5 mg qd continue titration of Lamictal, increase to 150 mg/d (previous dose 200 mg) continue Luvox 50 mg BID continue pregabalin 150 mg BID start metformin 250 mg qd on Vivitrol monthly injection Lab work from 06/24 reviewed with patient continue to monitor Patient educated on: diagnosis, medication risk/benefits and substance abuse Informed Consent: understands Reason for contiued partial hosp. stay Substantial Risk for: med/psych decompensation Certification I certify that partial hospital treatment is medically necessary due to the symptoms and problems resulting from the patient's mental illness and the failure to treat the patient at the partial hospital level of care would likely result in the patient requiring inpatient psychiatric care which could not be prevented at a less intensive level of care. Total time managing care of this patient today __30__ minutes. Discharge Plan Discharge Attending provider: Aydee Adams Medications: New topiramate 25 mg tablet 25 mg PO DAILY 14 Days Qty: 14 0RF topiramate 50 mg tablet 50 mg PO .QHS 14 Days Qty: 14 0RF guanfacine 2 mg tablet extended release 24 hr 2 mg PO QAM 14 Days Qty: 14 0RF guanfacine 1 mg tablet extended release 24 hr 1 mg PO DAILY 14 Days Qty: 14 0RF Rx Instructions: in afternoon metformin 500 mg tablet 500 mg PO .QHS 14 Days Qty: 14 0RF aripiprazole [Abilify] 5 mg tablet 5 mg PO BEDTIME 14 Days Qty: 14 0RF fluvoxamine 50 mg tablet 50 mg PO BID 14 Days Qty: 28 0RF lamotrigine 150 mg tablet 150 mg PO DAILY 14 Days Qty: 14 0RF nicotine 14 mg/24 hr patch 24 hour 1 patch transdermal DAILY 14 Days Qty: 14 0RF Rx Instructions: remove patch daily at night; use 14 mg patch Rx after completing 2 weeks of 21 mg patch Rx nicotine 7 mg/24 hr patch 24 hour 1 patch transdermal Q24H 14 Days Qty: 14 0RF Rx Instructions: remove daily at night; use 7 mg patch Rx after completing 2 weeks of 14 mg patch Rx Continued pregabalin 150 mg capsule 150 mg PO BID zolpidem 5 mg tablet 5 mg PO BEDTIME PRN (Reason: sleep) 14 Days Qty: 14 0RF nicotine 21 mg/24 hr Patch 24 Hour 1 patch TRANSDERMAL DAILY 14 Days Qty: 14 0RF Rx Instructions: remove patch daily at night nicotine (polacrilex) 4 mg Gum 4 mg BUCCAL Q2H Qty: 50 0RF Rx Instructions: Cinnamon option Vivitrol 380 mg suspension,extended rel recon 380 mg IM Q4W Patient Comments: Last took 2 weeks ago. albuterol sulfate [ProAir HFA] 90 mcg/actuation HFA aerosol inhaler 2 puff inhalation Q6H PRN (Reason: sob) Discontinued topiramate [Topamax] 25 mg Tablet 25 mg PO DAILY lamotrigine 200 mg tablet 100 mg PO DAILY Patient Comments: Patient was taking 200 mg daily. Currently is taking 100 mg daily. Rx Instructions: Takes 1/2 tab daily. fluvoxamine 100 mg tablet 50 mg PO BID Patient Comments: Patient stated she restarted. Prescription was for 100 mg tab take 1.5 tabs BID. She is taking 50 mg BID currently. No Action tramadol 50 mg Tablet 50 mg PO QID PRN (Reason: Pain) Stand Alone Forms: Patient Portal Discharge page Patient Education: Bipolar Disorder (DC), Post Traumatic Stress Disorder (DC)
--- NOTE | 2023-06-28 22:57 | P.PNPSP_ITS ---
Subjective Subjective Date of Service: 06/28/23 Reason For Visit: bipolar,PTSD Interim History: Patient seen for follow-up today, anticipating discharge at the end of the program. She is reportedly doing well, tolerating all medications without issue. Additional of Abilify has stabilized mood. She reports being euthymic, denies any further issues with lability or irritability. Reports guanfacine has been helpful for feeling more settled, less restless, improved anxiety. (she is consi derably hyperactive but improvement noted) She feels a little more relaxed and focused and feels moving the PM to the afternoon is especially helpful. She presents with considerably less hyperkinetic and fidgety. She may benefit from neuropsycholgocial testing in the future, once she has been stable in recovery for at least a year or so. We received her current medication regime. She is clear on dosing as follows: guanfacine ER to 2 mg qAM (for anxiety, restlessness, focus, ADHD) guanfacine ER 1 mg daily in afternoon topiramate 25 mg qAM (for cravings) topiramate 25-50 mg qHS lamotrigine 150 mg qd (for depression, anxiety, mood) Abilify 5 mg qd (for mood, irritability) Luvox 50 mg BID (for OCD) pregabalin 150 mg BID (for anxiety) metformin 500 mg/d (split 250/250) to mitigate weight gain from neuroleptic She denies any SI/ HI/ AH/VH. She appreciates the bump up in topiramate for cravings. Denies any associated thoughts or cravings at this time. Medication Compliance: Yes Side effects from medications: No Attending Groups: Yes Mental Status Exam Mental Status Exam Narrative: Alert, oriented, in no acute distress. Groomed. Restless, some fidgeting, no psychomotor agitation noted. Cooperative, forthcoming. Eye contact good. Mood good affect variable, no irritability or lability noted. Normal speech without pressure or latency. Thought process linear, coherent, a bit scattered without FOI or CHARY. Thought content relevant to stressors, future-oriented. Denies hopelessness or SI or HI, intention, urge or plan. Denies AH or VH. No evidence of perceptual disturbance. Cognition grossly intact but distractible. Sensorium clear. Insight and judgment limited/fair. Diagnostics Vital Signs (24Hr): BMI result Body Mass Index 31.9 Assessment & Plan Assessment & Plan (1) Bipolar II disorder with rapid cycling: Status: Acute Code(s): F31.81 - Bipolar II disorder (2) Other impulse disorders: Status: Acute Code(s): F63.89 - Other impulse disorders (3) Cocaine use disorder, severe, in early remission, dependence: Status: Acute Code(s): F14.21 - Cocaine dependence, in remission (4) Alcohol use disorder, severe, in early remission, dependence: Status: Acute Code(s): F10.21 - Alcohol dependence, in remission (5) Obsessive compulsive disorder (or obsessive compulsive neurosis): Qualifiers: Obsessive-compulsive disorder type: unspecified Qualified Code(s): F42.9 - Obsessive-compulsive disorder, unspecified Status: Acute Code(s): F42.9 - Obsessive-compulsive disorder, unspecified (6) Chronic post-traumatic stress disorder (PTSD): Status: Acute Code(s): F43.12 - Post-traumatic stress disorder, chronic (7) Other specified anxiety disorders: Status: Acute Code(s): F41.8 - Other specified anxiety disorders Plan [facility]charge from [facility] Continue medication regime Will defer further medication management to outpatient provider Continue on Vivitrol monthly injection Intake [facility] on SatJul 01, 2023; starts program next day Patient educated on: diagnosis, medication risk/benefits and substance abuse Informed Consent: understands Reason for contiued partial hosp. stay Substantial Risk for: stable for discharge Certification I certify that partial hospital treatment is medically necessary due to the symptoms and problems resulting from the patient's mental illness and the failure to treat the patient at the partial hospital level of care would likely result in the patient requiring inpatient psychiatric care which could not be prevented at a less intensive level of care. Total time managing care of this patient today __30__ minutes. Discharge Plan Discharge Attending provider: Aydee Adams Medications: New topiramate 25 mg tablet 25 mg PO DAILY 14 Days Qty: 14 0RF topiramate 50 mg tablet 50 mg PO .QHS 14 Days Qty: 14 0RF guanfacine 2 mg tablet extended release 24 hr 2 mg PO QAM 14 Days Qty: 14 0RF guanfacine 1 mg tablet extended release 24 hr 1 mg PO DAILY 14 Days Qty: 14 0RF Rx Instructions: in afternoon metformin 500 mg tablet 500 mg PO .QHS 14 Days Qty: 14 0RF aripiprazole [Abilify] 5 mg tablet 5 mg PO BEDTIME 14 Days Qty: 14 0RF fluvoxamine 50 mg tablet 50 mg PO BID 14 Days Qty: 28 0RF lamotrigine 150 mg tablet 150 mg PO DAILY 14 Days Qty: 14 0RF nicotine 14 mg/24 hr patch 24 hour 1 patch transdermal DAILY 14 Days Qty: 14 0RF Rx Instructions: remove patch daily at night; use 14 mg patch Rx after completing 2 weeks of 21 mg patch Rx nicotine 7 mg/24 hr patch 24 hour 1 patch transdermal Q24H 14 Days Qty: 14 0RF Rx Instructions: remove daily at night; use 7 mg patch Rx after completing 2 weeks of 14 mg patch Rx Continued pregabalin 150 mg capsule 150 mg PO BID zolpidem 5 mg tablet 5 mg PO BEDTIME PRN (Reason: sleep) 14 Days Qty: 14 0RF nicotine 21 mg/24 hr Patch 24 Hour 1 patch TRANSDERMAL DAILY 14 Days Qty: 14 0RF Rx Instructions: remove patch daily at night nicotine (polacrilex) 4 mg Gum 4 mg BUCCAL Q2H Qty: 50 0RF Rx Instructions: Cinnamon option Vivitrol 380 mg suspension,extended rel recon 380 mg IM Q4W Patient Comments: Last took 2 weeks ago. albuterol sulfate [ProAir HFA] 90 mcg/actuation HFA aerosol inhaler 2 puff inhalation Q6H PRN (Reason: sob) Discontinued topiramate [Topamax] 25 mg Tablet 25 mg PO DAILY lamotrigine 200 mg tablet 100 mg PO DAILY Patient Comments: Patient was taking 200 mg daily. Currently is taking 100 mg daily. Rx Instructions: Takes 1/2 tab daily. fluvoxamine 100 mg tablet 50 mg PO BID Patient Comments: Patient stated she restarted. Prescription was for 100 mg tab take 1.5 tabs BID. She is taking 50 mg BID currently. No Action tramadol 50 mg Tablet 50 mg PO QID PRN (Reason: Pain) Stand Alone Forms: Patient Portal Discharge page Patient Education: Bipolar Disorder (DC), Post Traumatic Stress Disorder (DC)
== END 2023-06-28 23:59 | disposition home or self-care (01) ==
LOC: HO.PHPA 09:45
PROVIDERS: Visit Provider Psychiatry & Neurology Psychiatry
DX: F31.81 Bipolar II disorder (principal); F41.8 Other specified anxiety disorders; F42.9 Obsessive-compulsive disorder, unspecified; F63.89 Other impulse disorders; F43.12 Post-traumatic stress disorder, chronic; F14.21 Cocaine dependence, in remission; F10.21 Alcohol dependence, in remission; Z79.899 Other long term (current) drug therapy
CPT/HCPCS: 80307; 90791; 90853